=== PATIENT | female | born 1970 | race Two or more races ===

== ENCOUNTER 2016-08-06 17:04 | Emergency (ER) | payer MEDICAID ==
[~2016-08-06] VITALS: Ht 165.1 cm; Wt 117.9 kg
[2016-08-06 17:36] LABS: Basophils # (auto) 0 uL; Basophils % (auto) 0.3 % (0.0-2.0); DEFINITIVE VIEW TRANSMISSION; Eosinophils # (auto) 0.2 uL; Eosinophils % (auto) 1.8 % (0.0-7.0); Hematocrit 40.9 % (36.0-46.0); Hemoglobin 13.5 g/dL (12.2-16.2); Lymphocytes # (auto) 1.2 uL; Lymphocytes % (auto) 10.5 % (10.0-50.0); Mean Corpuscular Hemoglobin 26.2 pg (28.0-32.0); Mean Corpuscular Volume 79.4 fL (80.0-100.0); Mean Platelet Volume 8.8 fL (7.4-10.4); Monocytes # (auto) 0.4 uL; Monocytes % (auto) 3.6 % (0.0-12.0); Neutrophils # (auto) 9.3 uL; Neutrophils % (auto) 83.8 % (37.0-80.0); Platelet Count (auto) 334 10^3/uL (140-450); Red Cell Distribution Width 16.6 % (11.6-16.0); White Blood Cell 11.1 10^3/uL (4.4-10.8)
[2016-08-06 18:13] LABS: Albumin 3.3 g/dL (3.4-5.0); BUN/Creatinine Ratio 11.9; Bilirubin, Total 0.3 mg/dL (0.2-1.0); Calcium 8.6 mg/dL (8.5-10.1); Magnesium 2.1 mg/dL (1.6-2.6); Potassium 4.2 mmol/L (3.5-5.1); Total Protein 7.5 g/dL (6.4-8.2)
[2016-08-06 18:20] LABS: Urine Bilirubin Negative (Negative); Urine Blood Negative /uL (Negative); Urine Color Yellow (Yellow); Urine Glucose Normal (Normal); Urine Hyaline Cast FEW /lpf (0 - 2); Urine Ketone Negative (Negative); Urine Mucus FEW (None Seen); Urine RBC 2 /hpf (0 - 4); Urine Squamous Epithelial Cell FEW /hpf (<5); Urine Urobilinogen Normal (Negative)
[2016-08-06 18:29] LABS: Urine Nitrite POSITIVE (Negative)
[2016-08-07] MEDS ORDERED: SODIUM CHLORIDE 0.9% 1,000 ML IV ONE ×2 (00:55→01:00)
[2016-08-07] MEDS ORDERED: ONDANSETRON HCL 4 MG/2 ML VIAL IV ONE ×2 (01:00)
[2016-08-07] MEDS ORDERED: MORPHINE SULFATE 4 MG/ML SYRG IV ONE ×2 (01:00)
[2016-08-07 01:16] LABS: Amylase 46 U/L (25-115)
[2016-08-07 05:30] VITALS: BP 124/75
== END 2016-08-07 07:11 | disposition home or self-care (01) ==
LOC: ER 17:09
DX: K29.70 Gastritis, unspecified, without bleeding (principal)
CPT/HCPCS: 36415; 74176; 80053; 81001; 81025; 82150; 83690; 83735; 85025; 96361; 96374; 96375; 99285; J2270; J2405; J7030

== ENCOUNTER 2016-12-09 06:40 | Emergency (ER) | payer MEDICAID ==
[~2016-12-09] VITALS: Ht 165.1 cm; Wt 117.9 kg
[2016-12-09 07:29] VITALS: BP 136/72
[2016-12-09 07:32] LABS: Basophils # (auto) 0.1 uL; Basophils % (auto) 0.7 % (0.0-2.0); CONDITION Y; DEFINITIVE SEE PRINTOUT; Eosinophils # (auto) 0.3 uL; Eosinophils % (auto) 2.5 % (0.0-7.0); Hematocrit 37.7 % (36.0-46.0); Hemoglobin 12.3 g/dL (12.2-16.2); Lymphocytes # (auto) 2.2 uL; Lymphocytes % (auto) 19.3 % (10.0-50.0); Mean Corpuscular Hemoglobin 26.2 pg (28.0-32.0); Mean Corpuscular Hgb Conc. 32.7 g/dL (32.0-36.0); Mean Corpuscular Volume 80.1 fL (80.0-100.0); Mean Platelet Volume 9.2 fL (7.4-10.4); Monocytes # (auto) 0.4 uL; Monocytes % (auto) 3.6 % (0.0-12.0); Neutrophils # (auto) 8.4 uL; Neutrophils % (auto) 73.9 % (37.0-80.0); Platelet Count (auto) 310 10^3/uL (140-450); Red Cell Distribution Width 16.8 % (11.6-16.0); White Blood Cell 11.3 10^3/uL (4.4-10.8)
[2016-12-09 07:39] LABS: Urine Bilirubin Negative (Negative); Urine Blood Negative /uL (Negative); Urine Color Yellow (Yellow); Urine Glucose TRACE mg/dL (Normal); Urine Ketone TRACE (Negative); Urine Mucus FEW (None Seen); Urine Nitrite Negative (Negative); Urine RBC 3 /hpf (0 - 4); Urine Squamous Epithelial Cell FEW /hpf (<5); Urine Urobilinogen Normal (Negative); Urine pH 5.5 (5.0-8.0)
[2016-12-09] MEDS ORDERED: cefTRIAXone SOD 500 MG VL IM ONE (07:45)
[2016-12-09 07:47] LABS: BUN/Creatinine Ratio 21.6; Bilirubin, Total 0.2 mg/dL (0.2-1.0); Potassium 3.9 mmol/L (3.5-5.1); Total Protein 6.7 g/dL (6.4-8.2)
== END 2016-12-09 08:48 | disposition home or self-care (01) ==
LOC: ER 06:40
DX: N39.0 Urinary tract infection, site not specified (principal); Z20.2 Contact with and (suspected) exposure to infections with a predominantly sexual mode of transmission
CPT/HCPCS: 36415; 80053; 81001; 81025; 85025; 96372; 99284; J0696

== ENCOUNTER 2018-06-25 14:00 | Emergency (ER) | payer SELFPAY ==
[~2018-06-25] VITALS: Ht 165.1 cm; Wt 117.9 kg
[2018-06-25 14:26] VITALS: BP 135/78
[2018-06-25 14:51] LABS: Urine Bacteria FEW /hpf (None Seen); Urine Blood TRACE /uL (Negative); Urine Mucus FEW (None Seen); Urine Specific Gravity 1.024 (1.001-1.035); Urine WBC 240 /hpf (0 - 5)
[2018-06-25] MEDS ORDERED: KETOROLAC TROMETH 60MG/2ML VIAL IM ONE (16:30)
== END 2018-06-25 16:49 | disposition home or self-care (01) ==
LOC: ER 14:11
DX: S39.012A Strain of muscle, fascia and tendon of lower back, initial encounter (principal); R51 Headache; V43.52XA Car driver injured in collision with other type car in traffic accident, initial encounter; Y93.89 Activity, other specified; Y92.410 Unspecified street and highway as the place of occurrence of the external cause; Y99.8 Other external cause status
CPT/HCPCS: 70450; 72100; 81001; 96372; 99284; J1885

== ENCOUNTER → 2019-10-14 | Outpatient (CLI) | payer OTHER ==
[2019-10-14 08:39] LABS: Eosinophils # (auto) 0.3 10 ^3/uL (0-0.8); Mean Corpuscular Volume 73.6 fL (80.0-100.0); Monocytes # (auto) 0.4 10 ^3/uL (0-1.3); Nucleated Red Blood Cells % 0.1 %; Red Cell Distribution Width 18.4 % (11.8-14.3)
[2019-10-14 08:41] LABS: Basophils # (auto) 0.1 10 ^3/uL (0-0.2); Basophils % (auto) 0.7 % (0.0-2.0); Hemoglobin 12.5 g/dL (12.2-16.2); Lymphocytes # (auto) 2.2 10 ^3/uL (0.4-5.4); Mean Corpuscular Hemoglobin 23.5 pg (28.0-32.0); Mean Corpuscular Hgb Conc. 31.9 g/dL (32.0-36.0); Monocytes % (auto) 4.6 % (0.0-12.0); Neutrophils # (auto) 6.5 10 ^3/uL (1.6-8.6); Neutrophils % (auto) 68.7 % (37.0-80.0); Platelet Count (auto) 282 10^3/uL (140-450); White Blood Cell 9.4 10^3/uL (4.4-10.8)
[2019-10-14 08:46] LABS: Urine Bacteria FEW /hpf (None Seen); Urine Blood Negative /uL (Negative); Urine Hyaline Cast FEW /lpf (0 - 2); Urine Mucus FEW (None Seen); Urine Specific Gravity 1.021 (1.001-1.035); Urine WBC 129 /hpf (0 - 5); Urine WBC Clumps PRESENT /hpf (None Seen)
[2019-10-14 09:00] LABS: Albumin 3.2 g/dL (3.4-5.0); Calcium 8.7 mg/dL (8.5-10.1); Potassium 4.2 mmol/L (3.5-5.1)
[2019-10-14 09:09] LABS: BUN/Creatinine Ratio 26.1; Bilirubin, Total 0.3 mg/dL (0.2-1.0); Total Protein 7.3 g/dL (6.4-8.2)
== END | disposition home or self-care (01) ==
LOC: LAB 08:09
PROVIDERS: ATTEND Internal Medicine
DX: I10 Essential (primary) hypertension (principal); E78.5 Hyperlipidemia, unspecified; R73.09 Other abnormal glucose
CPT/HCPCS: 36415; 80053; 80061; 81001; 82306; 83036; 85025

== ENCOUNTER → 2020-02-14 | Outpatient (CLI) | payer OTHER ==
[2020-02-15 05:11] LABS: RPR Non Reactive (Non Reactive)
== END | disposition home or self-care (01) ==
LOC: LAB 17:23
PROVIDERS: ATTEND Physician Assistant
DX: Z11.3 Encounter for screening for infections with a predominantly sexual mode of transmission (principal)
CPT/HCPCS: 86592; 86695; 86696; 86703

== ENCOUNTER 2020-12-31 17:05 | Emergency (ER) | payer OTHER ==
[~2020-12-31] VITALS: Ht 165.1 cm; Wt 104.3 kg
[2020-12-31 18:32] VITALS: BP 125/72
[2020-12-31 19:36] LABS: Basophils # (auto) 0.1 10 ^3/uL (0-0.2); Eosinophils # (auto) 0.3 10 ^3/uL (0-0.8); Mean Corpuscular Volume 68.4 fL (80.0-100.0); Monocytes # (auto) 0.6 10 ^3/uL (0-1.3); Monocytes % (auto) 4.8 % (0.0-12.0)
[2020-12-31 19:37] LABS: Basophils % (auto) 0.6 % (0.0-2.0); Eosinophils % (auto) 2.7 % (0.0-7.0); Hematocrit 36.1 % (36.0-46.0); Hemoglobin 11.3 g/dL (12.2-16.2); Lymphocytes # (auto) 3.4 10 ^3/uL (0.4-5.4); Lymphocytes % (auto) 27.1 % (10.0-50.0); Mean Corpuscular Hemoglobin 21.5 pg (28.0-32.0); Mean Corpuscular Hgb Conc. 31.4 g/dL (32.0-36.0); Neutrophils # (auto) 8.1 10 ^3/uL (1.6-8.6); Neutrophils % (auto) 64.8 % (37.0-80.0); Red Blood Cells 5.28 10^6/uL (4.0-5.20); Red Cell Distribution Width 18.8 % (11.8-14.3); White Blood Cell 12.6 10^3/uL (4.4-10.8)
[2020-12-31 19:51] LABS: Albumin 3.4 g/dL (3.4-5.0); Calcium 8.6 mg/dL (8.5-10.1)
[2020-12-31 20:00] LABS: BUN/Creatinine Ratio 25.4; Bilirubin, Total 0.2 mg/dL (0.2-1.0); CRP High Sensitivity 2.16 mg/dL (< 0.3); Total Protein 7.5 g/dL (6.4-8.2)
[2020-12-31] MEDS ORDERED: methylPREDNISolone SOD SUCC 125 MG/2 ML VL IM ONE (21:30)
[2020-12-31] MEDS ORDERED: KETOROLAC TROMETH 60MG/2ML VIAL IM ONE (21:30)
== END 2020-12-31 21:40 | disposition home or self-care (01) ==
LOC: ER 17:05
DX: M51.26 Other intervertebral disc displacement, lumbar region (principal); G58.8 Other specified mononeuropathies; R20.0 Anesthesia of skin; M79.671 Pain in right foot; E66.9 Obesity, unspecified; R51.9 Headache, unspecified; I10 Essential (primary) hypertension; Z68.38 Body mass index [BMI] 38.0-38.9, adult; Z86.73 Personal history of transient ischemic attack (TIA), and cerebral infarction without residual deficits; Z90.49 Acquired absence of other specified parts of digestive tract
CPT/HCPCS: 36415; 70450; 72131; 80053; 85025; 85652; 86141; 93971; 96372; 99285; J1885; J2930

== ENCOUNTER 2022-06-10 16:36 | Emergency (ER) | payer OTHER ==
[~2022-06-10] VITALS: Ht 165.1 cm; Wt 111.0 kg
[2022-06-10] MEDS ORDERED: traMADol HCL 50 MG TAB PO ONE (17:30)
[2022-06-10] MEDS ORDERED: cloNIDine HCL 0.1 MG TAB PO ONE (17:30)
[2022-06-10 17:31] LABS: Basophils # (auto) 0.1 10 ^3/uL (0-0.2); Mean Corpuscular Volume 65.2 fL (80.0-100.0); Monocytes # (auto) 0.4 10 ^3/uL (0-1.3); White Blood Cell 10.7 10^3/uL (4.4-10.8)
[2022-06-10 17:33] LABS: Basophils % (auto) 1.2 % (0.0-2.0); Eosinophils # (auto) 0.3 10 ^3/uL (0-0.8); Eosinophils % (auto) 2.6 % (0.0-7.0); Hematocrit 33.6 % (36.0-46.0); Hemoglobin 10.5 g/dL (12.2-16.2); Lymphocytes # (auto) 2.4 10 ^3/uL (0.4-5.4); Lymphocytes % (auto) 22.5 % (10.0-50.0); Mean Corpuscular Hemoglobin 20.4 pg (28.0-32.0); Mean Corpuscular Hgb Conc. 31.3 g/dL (32.0-36.0); Monocytes % (auto) 3.8 % (0.0-12.0); Neutrophils # (auto) 7.5 10 ^3/uL (1.6-8.6); Neutrophils % (auto) 69.9 % (37.0-80.0); Red Blood Cells 5.15 10^6/uL (4.0-5.20); Red Cell Distribution Width 18.5 % (11.8-14.3)
[2022-06-10 17:36] LABS: Urine Bacteria FEW /hpf (None Seen); Urine Blood Negative /uL (Negative); Urine Hyaline Cast FEW /lpf (0 - 2); Urine Specific Gravity 1.017 (1.001-1.035); Urine WBC 1 /hpf (0 - 5)
[2022-06-10 18:03] LABS: Albumin 3.4 g/dL (3.4-5.0); BUN/Creatinine Ratio 20.8; Calcium 8.8 mg/dL (8.5-10.1)
[2022-06-10 18:06] LABS: Bilirubin, Total 0.2 mg/dL (0.2-1.0); Total Protein 7.1 g/dL (6.4-8.2)
[2022-06-10 18:51] VITALS: BP 138/76
[2022-06-10] MEDS ORDERED: MECL25TA18 PO (19:19)
== END 2022-06-10 20:28 | disposition home or self-care (01) ==
LOC: ER 16:36
DX: R51.9 Headache, unspecified (principal); R42 Dizziness and giddiness; I10 Essential (primary) hypertension; Z86.73 Personal history of transient ischemic attack (TIA), and cerebral infarction without residual deficits; Z90.49 Acquired absence of other specified parts of digestive tract
CPT/HCPCS: 36415; 70450; 72125; 80053; 81001; 81025; 82962; 85025; 93005

== ENCOUNTER 2023-03-15 09:04 | Emergency (ER) | payer OTHER ==
[~2023-03-15] VITALS: Ht 165.1 cm; Wt 113.5 kg
[~2023-03-15 09:04] MED LIST: MECL1TAB32 PO
[2023-03-15] MEDS ORDERED: ASPirin 81 mg TAB PO ONE (09:30)
[2023-03-15 09:38] LABS: Basophils # (auto) 0.1 10 ^3/uL (0-0.2); Eosinophils # (auto) 0.3 10 ^3/uL (0-0.8); Eosinophils % (auto) 2.4 % (0.0-7.0); Monocytes # (auto) 0.4 10 ^3/uL (0-1.3)
[2023-03-15 09:39] LABS: Basophils % (auto) 0.7 % (0.0-2.0); Hematocrit 35.4 % (36.0-46.0); Lymphocytes % (auto) 17.7 % (10.0-50.0); Mean Corpuscular Hemoglobin 20.2 pg (28.0-32.0); Mean Corpuscular Volume 65.4 fL (80.0-100.0); Monocytes % (auto) 3.9 % (0.0-12.0); Neutrophils # (auto) 8.6 10 ^3/uL (1.6-8.6); Neutrophils % (auto) 75.3 % (37.0-80.0); Red Blood Cells 5.42 10^6/uL (4.0-5.20); White Blood Cell 11.5 10^3/uL (4.4-10.8)
[2023-03-15 09:40] LABS: Red Cell Distribution Width 20.3 % (11.8-14.3)
[2023-03-15 09:58] LABS: Alanine Aminotransferase 15 U/L (7-40); Alkaline Phosphatase 92 U/L (46-116); Anion Gap 7 (5-15); Aspartate Aminotransferase 14 U/L (13-40); BUN/Creatinine Ratio 20.9 (10.0-20.0); Bilirubin, Total 0.4 mg/dL (0.2-1.0); Blood Urea Nitrogen 14 mg/dL (9-23); Calcium 8.8 mg/dL (8.5-10.1); Carbon Dioxide 23 mmol/L (20-30); Chloride 106 mmol/L (98-107); Glucose 111 mg/dL (74-106); Potassium 4.3 mmol/L (3.5-5.1); Sodium 136 mmol/L (136-145)
[2023-03-15 09:59] LABS: Total Protein 6.6 g/dL (5.7-8.2)
[2023-03-15 10:14] VITALS: PULSE 84; RESP 16; TEMP 98; O2SAT 99
[2023-03-15 10:19] LABS: Urine Bacteria NONE SEEN /hpf (None Seen); Urine Blood Negative /uL (Negative); Urine Clarity Clear (Clear); Urine Protein, UAD Negative (Negative); Urine Specific Gravity 1.016 (1.001-1.035); Urine Urobilinogen Normal (Negative); Urine WBC 1 /hpf (0 - 5); Urine pH 6.5 (5.0-8.0)
[2023-03-15 10:24] LABS: Urine Color Straw (Yellow)
[2023-03-15 13:54] LABS: COVID19 ANTIGEN SOFIA FIA POSITIVE (NEGATIVE)
[2023-03-15 14:00] VITALS: BP 135/76; PULSE 94; RESP 16; O2SAT 100
[2023-03-15] MEDS ORDERED: METH4PAK PO ×3 (14:01→14:16)
[2023-03-15] MEDS ORDERED: AZIT1POW PO ×3 (14:01→14:16)
[2023-03-15] MEDS ORDERED: AZITHROMYCIN 500MG/ 250ML 250 ML IV ONE (14:15)
[2023-03-15] MEDS ORDERED: methylPREDNISolone SOD SUCC 40 MG/ML VL IV ONE (14:15)
[2023-03-15 14:20] LABS: Anisocytosis Slight; Hypochromia Moderate; Platelet Estimate Adequate
== END 2023-03-15 16:08 | disposition home or self-care (01) ==
LOC: ER 09:04
DX: U07.1 COVID-19 (principal); I10 Essential (primary) hypertension; Z86.73 Personal history of transient ischemic attack (TIA), and cerebral infarction without residual deficits; Z90.49 Acquired absence of other specified parts of digestive tract; Z98.890 Other specified postprocedural states
CPT/HCPCS: 36415; 71046; 80053; 81001; 84484; 85025; 85379; 87426; 93005; 96365; 96375; 99285; J0456; J2920

== ENCOUNTER 2023-04-06 20:17 | Emergency (ER) | payer OTHER ==
[~2023-04-06] VITALS: Ht 165.1 cm; Wt 113.7 kg
[~2023-04-06 20:17] MED LIST changes: +AZIT1POW PO; +METH4PAK PO
[2023-04-06 22:19] LABS: COVID19 ANTIGEN SOFIA FIA NEGATIVE (NEGATIVE)
[2023-04-06 22:20] LABS: Rapid Influenza A Negative (Negative); Rapid Influenza B Negative (Negative)
[2023-04-06] MEDS ORDERED: IPRATROPIUM BROM 0.5 MG/2.5ML INH SOL NEB ONE (22:45)
[2023-04-06] MEDS ORDERED: ALBUTEROL SULF 2.5 MG/0.5ML(0.5%) NEB SOLN NEB ONE (22:45)
[2023-04-06] MEDS ORDERED: methylPREDNISolone SOD SUCC 125 MG/2 ML VL IM ONE (22:45)
[2023-04-06 23:12] LABS: Basophils # (auto) 0 10 ^3/uL (0-0.2); Basophils % (auto) 0.3 % (0.0-2.0); Eosinophils # (auto) 0.5 10 ^3/uL (0-0.8); Eosinophils % (auto) 4.6 % (0.0-7.0); Hematocrit 37.3 % (36.0-46.0); Hemoglobin 11.4 g/dL (12.2-16.2); Lymphocytes # (auto) 3.8 10 ^3/uL (0.4-5.4); Lymphocytes % (auto) 33.8 % (10.0-50.0); Mean Corpuscular Hemoglobin 20.5 pg (28.0-32.0); Mean Corpuscular Hgb Conc. 30.6 g/dL (32.0-36.0); Mean Corpuscular Volume 66.9 fL (80.0-100.0); Monocytes # (auto) 0.4 10 ^3/uL (0-1.3); Neutrophils # (auto) 6.4 10 ^3/uL (1.6-8.6); Neutrophils % (auto) 57.3 % (37.0-80.0); Red Blood Cells 5.57 10^6/uL (4.0-5.20); White Blood Cell 11.1 10^3/uL (4.4-10.8)
[2023-04-06 23:13] LABS: Red Cell Distribution Width 22.4 % (11.8-14.3)
[2023-04-06 23:46] LABS: Alanine Aminotransferase 17 U/L (7-40); Albumin 4.4 g/dL (3.2-4.8); Alkaline Phosphatase 104 U/L (46-116); Anion Gap 9 (5-15); Aspartate Aminotransferase 10 U/L (13-40); BUN/Creatinine Ratio 12.2 (10.0-20.0); Bilirubin, Total 0.4 mg/dL (0.2-1.0); Blood Urea Nitrogen 9 mg/dL (9-23); Calcium 9.3 mg/dL (8.7-10.4); Carbon Dioxide 26 mmol/L (20-30); Chloride 104 mmol/L (98-107); Glucose 102 mg/dL (74-106); Potassium 3.7 mmol/L (3.5-5.1); Sodium 139 mmol/L (136-145); Total Protein 7.4 g/dL (5.7-8.2)
[2023-04-06 23:53] LABS: Hypochromia Marked; Platelet Estimate Adequate; Stomatocytes Few
[2023-04-06 23:54] LABS: Ovalocytes FEW
[2023-04-07] MEDS ORDERED: ALBU108A5 IN (00:53)
[2023-04-07 02:22] VITALS: BP 131/96; PULSE 91; RESP 18; TEMP 98; O2SAT 97
== END 2023-04-07 02:36 | disposition home or self-care (01) ==
LOC: ER 20:17
DX: J40 Bronchitis, not specified as acute or chronic (principal); I10 Essential (primary) hypertension; Z86.73 Personal history of transient ischemic attack (TIA), and cerebral infarction without residual deficits; Z90.49 Acquired absence of other specified parts of digestive tract; Z20.822 Contact with and (suspected) exposure to COVID-19
CPT/HCPCS: 36415; 71045; 80053; 85025; 85379; 87426; 87804; 94640; 99284; J2930; J7644

== ENCOUNTER 2023-11-29 13:54 | Emergency (ER) | payer OTHER ==
[~2023-11-29] VITALS: Ht 165.1 cm; Wt 115.9 kg
[~2023-11-29 13:54] MED LIST changes: +ALBU108A5 IN; +MECL-90 PO; -MECL1TAB32 PO
[2023-11-29] MEDS: HYDROcodone-ACET 10/325MG TAB PO ONE (14:00)
[2023-11-29 14:20] LABS: Basophils # (auto) 0.1 10 ^3/uL (0-0.2); Basophils % (auto) 0.4 % (0.0-2.0); Eosinophils # (auto) 0 10 ^3/uL (0-0.8); Lymphocytes # (auto) 1.7 10 ^3/uL (0.4-5.4); Mean Corpuscular Volume 69.6 fL (80.0-100.0); Monocytes # (auto) 0.9 10 ^3/uL (0-1.3); Monocytes % (auto) 6.7 % (0.0-12.0)
[2023-11-29 14:22] LABS: Eosinophils % (auto) 0.3 % (0.0-7.0); Hematocrit 37.6 % (36.0-46.0); Lymphocytes % (auto) 12.4 % (10.0-50.0); Mean Corpuscular Hemoglobin 22.3 pg (28.0-32.0); Neutrophils # (auto) 10.7 10 ^3/uL (1.6-8.6); Neutrophils % (auto) 80.2 % (37.0-80.0); White Blood Cell 13.4 10^3/uL (4.4-10.8)
[2023-11-29 14:39] LABS: Alanine Aminotransferase 18 U/L (7-40); Albumin 4.1 g/dL (3.2-4.8); Alkaline Phosphatase 102 U/L (46-116); Anion Gap 8 (5-15); Aspartate Aminotransferase 14 U/L (13-40); BUN/Creatinine Ratio 14.1 (10.0-20.0); Blood Urea Nitrogen 12 mg/dL (9-23); Calcium 9.1 mg/dL (8.7-10.4); Carbon Dioxide 21 mmol/L (20-30); Chloride 108 mmol/L (98-107); Glucose 131 mg/dL (74-106); Lipase 28 U/L (12-53); Potassium 4.1 mmol/L (3.5-5.1); Sodium 137 mmol/L (136-145)
[2023-11-29 14:40] LABS: Bilirubin, Total 0.6 mg/dL (0.2-1.0); Total Protein 6.7 g/dL (5.7-8.2)
[2023-11-29 18:02] LABS: Urine Bacteria FEW /hpf (None Seen); Urine Blood 1+ /uL (Negative); Urine Budding Yeast OCCASIONAL /hpf (None Seen); Urine Clarity Ex.Turbid (Clear); Urine Color Colorless (Yellow); Urine Protein, UAD 1+ (Negative); Urine Specific Gravity 1.019 (1.001-1.035); Urine Urobilinogen Normal (Negative); Urine WBC 1099 /hpf (0 - 5); Urine WBC Clumps PRESENT /hpf (None Seen)
[2023-11-29] MEDS: ONDANSETRON ODT 4 MG TAB PO ONE (18:07)
[2023-11-29] MEDS: ACETAMINOPHEN 500 MG TAB PO ONE (18:07)
[2023-11-29] MEDS ORDERED: LEVO750T40 PO (19:15)
[2023-11-29] MEDS ORDERED: ACET500T58 PO (19:15)
[2023-11-29 20:06] VITALS: BP 116/72; PULSE 73; RESP 14; TEMP 97.9; O2SAT 95
[2023-11-29] MEDS: levoFLOXacin 250 MG TAB PO ONE (20:34)
== END 2023-11-29 20:40 | disposition home or self-care (01) ==
LOC: EDBD 13:54 → ER 13:54
DX: N39.0 Urinary tract infection, site not specified (principal); E03.9 Hypothyroidism, unspecified; I10 Essential (primary) hypertension; Z86.73 Personal history of transient ischemic attack (TIA), and cerebral infarction without residual deficits; Z98.890 Other specified postprocedural states; Z90.49 Acquired absence of other specified parts of digestive tract
CPT/HCPCS: 36415; 70450; 80053; 81001; 81025; 82962; 83690; 83880; 84484; 85025; 99284; Q0162

== ENCOUNTER 2024-11-30 09:34 | Inpatient (IN) | payer MEDICAID, OTHER ==
[~2024-11-30] VITALS: Ht 165.1 cm; Wt 111.0 kg
[~2024-11-30 09:34] MED LIST changes: +ACET500T58 PO; +LEVO750T40 PO
[2024-11-30] MEDS: FAMOTIDINE (10MG/ML) 2ML VL IV ONE (10:21)
[2024-11-30] MEDS: ONDANSETRON HCL 4 MG/2 ML VIAL IV ONE (10:21)
[2024-11-30] MEDS: SODIUM CHLORIDE 0.9% 1,000 ML IV ONE (10:21)
--- NOTE | 2024-11-30 10:30 | ED.PDOC ---
GI ASSESSMENT HPI Comments 54 y.o female presents to the ED for a chief complaint of left upper quadrant pain associated with nausea, vomiting and generalized weakness that started last night. Patient describes pain as sharp, constant and radiates to her back. Patient also reports developing a rash to bilateral hands that is now peeling and states she is unable to keep anything down including water. Patient denies any diarrhea, constipation, bloody stool, fever, chills. Patient has a medical history of laminectomy x September 2024, unilateral renal agenesis, thyroid disease, and TIA. Chief Complaint: Flank Pain Time Seen by MD: 10:12 Primary Care Provider: JUDITH Reviewed Notes: Nurses Notes, Medications, Allergies Allergies: Coded Allergies: NO KNOWN ALLERGIES (Unverified , 01/23/16) Home Meds Active Scripts Acetaminophen (Acetaminophen) 500 Mg Tab, 500 MG PO Q4HP PRN, #20 TAB Prov:MAISHA VEGA PAC 11/29/23 Levofloxacin Hemihydrate (LEVOFLOXACIN) 750 Mg Tab, 1 TAB PO DAILY, #10 TAB Prov:MAISHA VEGA PAC 11/29/23 Albuterol Sulfate (Albuterol Sulfate Hfa) 108 Mcg/Act Aer, 108 MCG IN TID PRN, #1 AER Prov:ARLINE KILPATRICK NURSING INSTRUCTOR 04/07/23 Methylprednisolone (Medrol Dosepak) 4 Mg Nolan, 4 MG PO UD, #21 TAB UAD Prov:SAUNDRA ROSALES MD 03/15/23 Azithromycin (Zithromax) 1 Gm Pow, 1 PACK PO ONCE, #1 PACK Prov:SAUNDRA ROSALES MD 03/15/23 Meclizine Hcl (Meclizine Hcl) 25 Mg Tab, 25 MG PO BIDP PRN for 10 Days, #20 MG Prov:DALLIN JAVIER MD 06/10/22 Information Source: Patient Mode of Arrival: walker Timing: Hours Duration: Since onset Quality: Sharp Vomitus: Hard Stool: Normal Severity: Moderate Recent: None Recent Hx of: None Pain Location: LUQ Modifying Factors: Nothing Associated sign and symptoms: Nausea, Vomiting, Abdominal Pain Past Medical History PAST MEDICAL HISTORY: Angina, HTN, Thyroid, TIA Past Medical History (Other): unilateral renal agenesis Surgical History: Cholecystectomy, Surgical History (Other): laminectomy x [place]irl 2025 ENGINEERING DRAFTER History: No Pertinent ENGINEERING DRAFTER History Family History Family History: Reviewed,noncontributory to illness Social History Smoker: Non-Smoker Alcohol: Denies ETOH Use Drugs: Denies Drug Use Lives In: Home Constitutional: reports: weakness; denies: chills, diaphoresis, fatigue, fever, malaise, sweats, others EENTM: denies: blurred vision, double vision, ear bleeding, ear discharge, ear drainage, ear pain, ear ringing, eye pain, eye redness, hearing loss, mouth pain, mouth swelling, nasal discharge, nose bleeding, nose congestion, nose pain, photophobia, tearing, throat pain, throat swelling, voice changes, others Respiratory: denies: cough, hemoptysis, orthopnea, SOB at rest, shortness of breath, SOB with excertion, stridor, wheezing, others Cardiovascular: denies: chest pain, dizzy spells, diaphoresis, Dyspnea on exertion, edema, irregular heart beat, left arm pain, lightheadedness, palpitations, PND, syncope, others Gastrointestinal: reports: abdominal pain, nausea, vomiting; denies: abdomen distended, blood streaked bowels, constipated, diarrhea, dysphagia, difficulty swallowing, hematemesis, melena, poor appetite, poor fluid intake, rectal bleeding, rectal pain, others Genitourinary: denies: abnormal vagina bleeding, burning, dyspareunia, dysuria, flank pain, frequency, hematuria, incontinence, pain, , vagina discharge, urgency, others Neurological: denies: dizziness, fainting, headache, left sided numbness, left sided weakness, numbness, paresthesia, pre-existing deficit, right sided numbness, right sided weakness, seizure, speech problems, tingling, tremors, weakness, others Musculoskeletal: denies: back pain, gout, joint pain, joint swelling, muscle pain, muscle stiffness, neck pain, others Integumetry: denies: bruises, change in color, change in hair/nails, dryness, laceration, lesions, lumps, rash, wounds, others Allergic/Immunocompromised: denies: Difficulty Healing, Frequent Infections, Hives, Itching, others Hematologic/Lymphatic: denies: anemia, blood clots, easy bleeding, easy bruising, swollen glands, others Endocrine: denies: excessive hunger, excessive sweating, excessive thirst, excessive urination, flushing, intolerance to cold, intolerance to heat, unexplained weight gain, unexplained weight loss, others Psychiatric: denies: anxiety, bipolar disorder, depression, hopeless, panic disorder, schizophrenia, sleepless, suicidal, others All Other Systems: Reviewed and Negative Physical Exam General Appearance: No Apparent Distress, Normal HEENT: Normal ENT Inspection, Pharynx Normal, TMs Normal Neck: Full Range of Motion, Non-Tender, Normal, Normal Inspection Respiratory: Chest Non-Tender, Lungs Clear, No Accessory Muscle Use, No Respiratory Distress, Normal Breath Sounds Cardiovascular: No Edema, No JVD, No Murmur, No Gallop, Normal Peripheral Pulses, Regular Rate/Rhythm Breast Exam: Deferred Gastrointestinal: No Organomegaly, Non Tender, No Pulsatile Mass, Normal Bowel Sounds, Soft Genitalia: Deferred Pelvic: Deferred Rectal: Deferred Extremities: No calf tenderness, Normal capillary refill, Normal inspection, Normal range of motion, Non-tender, No pedal edema Musculoskeletal : Apperance: Normal Neurologic: Alert, programming coordinator II-XII nml as Tested, No Motor Deficits, Normal Affect, Normal Mood, No Sensory Deficits Cerebellar Function: Normal Reflexes: Normal Skin: Dry, Normal Color, Warm Lymphatic: No Adenopathy Was a procedure done? Was a procedure done?: No GI differential Dx Differential Diagnosis: Esophagitis, Gastritis/PUD, Inflammatory BD X-Ray, Labs, Meds, VS Vital Signs Date Time Temp Pulse Resp B/P (MAP) Pulse Ox O2 Delivery O2 Flow Rate FiO2 11/30/24 11:37 98.0 65 16 140/71 (94) 100 98.0 11/30/24 09:45 98.0 92 16 134/76 (95) 99 98.0 11/30/24 09:45 98.0 92 16 134/76 (95) 99 98.0 Lab Test 11/30/24 10:27 11/30/24 09:51 Range/Units White Blood Count 11.1 H 4.4-10.8 10^3/uL Red Blood Count 5.43 H 4.0-5.20 10^6/uL Hemoglobin 14.4 12.2-16.2 g/dL Hematocrit 43.7 36.0-46.0 % Mean Corpuscular Volume 80.4 80.0-100.0 fL Mean Corpuscular Hemoglobin 26.5 L 28.0-32.0 pg Mean Corpuscular Hemoglobin Concent 32.9 32.0-36.0 g/dL Red Cell Distribution Width 15.4 H 11.8-14.3 % Platelet Count 291 140-450 10^3/uL Mean Platelet Volume 9.2 6.9-10.8 fL Neutrophils (%) (Auto) 70.6 37.0-80.0 % Lymphocytes (%) (Auto) 22.4 10.0-50.0 % Monocytes (%) (Auto) 3.7 0.0-12.0 % Eosinophils (%) (Auto) 1.9 0.0-7.0 % Basophils (%) (Auto) 1.4 0.0-2.0 % Neutrophils # (Auto) 7.8 1.6-8.6 10 ^3/uL Lymphocytes # (Auto) 2.5 0.4-5.4 10 ^3/uL Monocytes # (Auto) 0.4 0-1.3 10 ^3/uL Eosinophils # (Auto) 0.2 0-0.8 10 ^3/uL Basophils # (Auto) 0.2 0-0.2 10 ^3/uL Nucleated Red Blood Cells 0.0 % Sodium Level 141 136-145 mmol/L Potassium Level 3.8 3.5-5.1 mmol/L Chloride Level 105 98-107 mmol/L Carbon Dioxide Level 24 20-31 mmol/L Anion Gap 12 5-15 Blood Urea Nitrogen 13 9-23 mg/dL Creatinine 0.75 0.550-1.02 mg/dL Glomerular Filtration Rate Calc 95 >90 mL/min BUN/Creatinine Ratio 17.3 10.0-20.0 Serum Glucose 80 74-106 mg/dL Calcium Level 10.3 8.7-10.4 mg/dL Urine Color Yellow Yellow Urine Clarity Turbid H Clear Urine pH 7.5 5.0-9.0 Urine Specific [place] 1.022 1.001-1.035 Urine Protein Trace H Negative Urine Ketones Negative Negative Urine Blood Negative Negative /uL Urine Nitrite 2+ H Negative Urine Bilirubin Negative Negative Urine Urobilinogen Normal Negative mg/dL Urine Leukocyte Esterase 2+ Negative /uL Urine RBC 5 0 - 4 /hpf Urine Microscopic WBC 17 H 0-5 /HPF Urine Squamous Epithelial Cells Many <5 /hpf Urine Bacteria Many H None Seen /hpf Urine Mucus Few None Seen Urine Glucose Normal Normal mg/dL Current Medications Medications (Trade) Dose Ordered Sig/Kami Route Start Time Stop Time Status Last Admin Sodium Chloride 1,000 ml @ 1,000 mls/hr Q1H ONCE IV 11/30/24 10:15 11/30/24 11:14 DC 11/30/24 10:21 Ondansetron HCl (Zofran) 4 mg ONCE ONCE IV 11/30/24 10:15 11/30/24 10:16 DC 11/30/24 10:21 Famotidine (Pepcid Injection) 20 mg ONCE ONCE IV 11/30/24 10:15 11/30/24 10:16 DC 11/30/24 10:21 Time of 1ST Reevaluation: 12:00 Reevaluation 1ST: Unchanged Patient Education/Counseling: Diagnosis, Treatment, Prognosis Family Education/Counseling: No Family Present SEPSIS Sepsis Screen Date sepsis recognized/suspect: Nov 30, 2024 Time Sepsis recognized/suspect: 944 Recent Procedure: Yes (LAMINECTOMY 10/07/24) On Antibiotic Therapy: No Respiratory Rate >20: No Heart Rate >90: Yes Temp<36 C (96.8 F) or >38.3 C: No SBP <90 or MAP <65 mmHG: No New Acute Mental Status Change: No Is the patient on CPAP, BIPAP,: No Orders/Vitals/Labs Physician Orders Cefepime 2gm/50ml Ns (Maxipime 2gm/50ml) (11/30/24 13:00) Vancomycin 1gm/200ml Pm (11/30/24 13:00) Lactic Acid W/ Reflex Order (11/30/24 12:49) Blood Culture (11/30/24 12:49) Vital Signs Date Time Temp Pulse Resp B/P (MAP) Pulse Ox O2 Delivery O2 Flow Rate FiO2 11/30/24 11:37 98.0 65 16 140/71 (94) 100 98.0 11/30/24 09:45 98.0 92 16 134/76 (95) 99 98.0 11/30/24 09:45 98.0 92 16 134/76 (95) 99 98.0 Laboratory Tests Test 11/30/24 10:27 White Blood Count 11.1 10^3/uL (4.4-10.8) H Medications Medications Dose Ordered Sig/Kami Route Start Time Stop Time Status Last Admin Dose Admin Famotidine 20 mg ONCE ONCE IV 11/30/24 10:15 11/30/24 10:16 DC 11/30/24 10:21 Ondansetron HCl 4 mg ONCE ONCE IV 11/30/24 10:15 11/30/24 10:16 DC 11/30/24 10:21 Sodium Chloride 1,000 ml @ 1,000 mls/hr Q1H ONCE IV 11/30/24 10:15 11/30/24 11:14 DC 11/30/24 10:21 Departure 1 Departure Time of Disposition: 13:22 (Patient with a complicated UTI this failed many outpatient antibiotics. We will admit patient for further workup and expert consultation) Impression: Primary Impression: Complicated UTI (urinary tract infection) Disposition: ADMITTED INPATIENT Admit to: Med Surg Condition: Serious Critical Care Note Critical Care Time?: No Stability Stability form required: No I personally scribed for ALEJANDRO AIKEN MD ([email or web address]) on 11/30/24 at 10:30. Electronically submitted by Ellen Morales ([facility]). ALEJANDRO AIKEN MD Nov 30, 2024 10:30
[2024-11-30 10:44] LABS: Urine Bacteria MANY /hpf (None Seen); Urine Blood Negative /uL (Negative); Urine Clarity Turbid (Clear); Urine Color Yellow (Yellow); Urine Mucus FEW (None Seen); Urine Protein, UAD TRACE (Negative); Urine Specific Gravity 1.022 (1.001-1.035); Urine Squamous Epithelial Cell MANY /hpf (<5); Urine Urobilinogen Normal (Negative); Urine WBC 17 /HPF (0-5); Urine pH 7.5 (5.0-9.0)
[2024-11-30 10:56] LABS: Basophils # (auto) 0.2 10 ^3/uL (0-0.2); Basophils % (auto) 1.4 % (0.0-2.0); Eosinophils # (auto) 0.2 10 ^3/uL (0-0.8); Eosinophils % (auto) 1.9 % (0.0-7.0); Hematocrit 43.7 % (36.0-46.0); Hemoglobin 14.4 g/dL (12.2-16.2); Lymphocytes # (auto) 2.5 10 ^3/uL (0.4-5.4); Lymphocytes % (auto) 22.4 % (10.0-50.0); Mean Corpuscular Hemoglobin 26.5 pg (28.0-32.0); Mean Corpuscular Hgb Conc. 32.9 g/dL (32.0-36.0); Mean Corpuscular Volume 80.4 fL (80.0-100.0); Monocytes # (auto) 0.4 10 ^3/uL (0-1.3); Monocytes % (auto) 3.7 % (0.0-12.0); Neutrophils # (auto) 7.8 10 ^3/uL (1.6-8.6); Neutrophils % (auto) 70.6 % (37.0-80.0); Platelet Count (auto) 291 10^3/uL (140-450); Red Blood Cells 5.43 10^6/uL (4.0-5.20); Red Cell Distribution Width 15.4 % (11.8-14.3); White Blood Cell 11.1 10^3/uL (4.4-10.8)
[2024-11-30 11:02] LABS: Chloride 105 mmol/L (98-107); Potassium 3.8 mmol/L (3.5-5.1); Sodium 141 mmol/L (136-145)
[2024-11-30 11:03] LABS: Anion Gap 12 (5-15); Calcium 10.3 mg/dL (8.7-10.4); Carbon Dioxide 24 mmol/L (20-31)
[2024-11-30 11:08] LABS: BUN/Creatinine Ratio 17.3 (10.0-20.0); Blood Urea Nitrogen 13 mg/dL (9-23); Glucose 80 mg/dL (74-106)
[2024-11-30] MEDS: VANCOMYCIN 1GM/200ML PM 200 ML IV ONE (13:53)
[2024-11-30] MEDS: CEFEPIME 2GM/50ML NS 50 ML IV ONE (14:02)
[2024-11-30] MEDS ORDERED: ACETAMINOPHEN 325 MG TAB PO PRN (15:30)
[2024-11-30] MEDS ORDERED: DOCUSATE SOD 100 MG CAP PO PRN (15:30)
--- NOTE | 2024-11-30 15:32 | DVHHP2 ---
Admitting Diagnosis: flank pain History of Present Illness 54 y.o female presents to the ED for a chief complaint of left upper quadrant pain associated with nausea, vomiting and generalized weakness that started last night. Patient describes pain as sharp, constant and radiates to her back. Patient also reports developing a rash to bilateral hands that is now peeling and states she is unable to keep anything down including water. Patient denies any diarrhea, constipation, bloody stool, fever, chills. Patient has a medical history of laminectomy x September 2024, unilateral renal agenesis, thyroid disease, and TIA. PAST MEDICAL HISTORY: Angina, HTN, Thyroid, TIA Past Medical History (Other): unilateral renal agenesis Surgical History: Cholecystectomy, Surgical History (Other): laminectomy x 2024 CHIEF LENDING OFFICER History: No Pertinent CHIEF LENDING OFFICER History Family History: Reviewed,noncontributory to illness Social History Smoker: Non-Smoker Alcohol: Denies ETOH Use Drugs: Denies Drug Use Lives In: Home Patient Family History: Cerebrovascular accident (CVA) G8 MOTHER G8 FATHER GRANDPARENTS GRANDPARENTS Diabetes mellitus G8 MOTHER G8 FATHER GRANDPARENTS GRANDPARENTS FHx: uterine cancer Glaucoma G8 FATHER G8 SISTER Hypertension G8 MOTHER G8 FATHER GRANDPARENTS GRANDPARENTS Malignant neoplasm of breast AUNT Malignant neoplasm of ovary AUNT Allergies: Coded Allergies: NO KNOWN ALLERGIES (Unverified , 01/23/16) Home Meds Active Scripts Acetaminophen (Acetaminophen) 500 Mg Tab, 500 MG PO Q4HP PRN, #20 TAB Prov:MAISHA VEGA PAC 11/29/23 Levofloxacin Hemihydrate (LEVOFLOXACIN) 750 Mg Tab, 1 TAB PO DAILY, #10 TAB Prov:MAISHA VEGA PAC 11/29/23 Albuterol Sulfate (Albuterol Sulfate Hfa) 108 Mcg/Act Aer, 108 MCG IN TID PRN, #1 AER Prov:ARLINE KILPATRICK 04/07/23 Methylprednisolone (Medrol Dosepak) 4 Mg Nolan, 4 MG PO UD, #21 TAB UAD Prov:SAUNDRA ROSALES MD 03/15/23 Azithromycin (Zithromax) 1 Gm Pow, 1 PACK PO ONCE, #1 PACK Prov:SAUNDRA ROSALES MD 03/15/23 Meclizine Hcl (Meclizine Hcl) 25 Mg Tab, 25 MG PO BIDP PRN for 10 Days, #20 MG Prov:DALLIN JAVIER MD 06/10/22 Current Medications Current Medications Medications (Trade) Dose Ordered Sig/Kami Route PRN Reason Start Time Stop Time Status Last Admin Cefepime HCl 50 ml @ 12.5 mls/hr BID IV 11/30/24 22:00 Sodium Chloride (Saline Lock Ns) 10 ml Q8HR IV 11/30/24 22:00 UNV Docusate Sodium (Colace Capsule) 100 mg BIDPRN PRN PO FOR CONSTIPATION 11/30/24 15:30 UNV Acetaminophen (Tylenol Tablet) 650 mg Q6HP PRN PO PAIN SCALE 1-3 OR TEMP>100.4 11/30/24 15:30 UNV Acetaminophen/ Hydrocodone Bitart ([place] 5/325MG Tab) 1 tab Q4HP PRN PO MODERATE PAIN (4-6 PAIN SCALE) 11/30/24 15:30 UNV Ondansetron HCl (Zofran) 4 mg Q4HP PRN IV NAUSEA / VOMITING 11/30/24 15:30 UNV Morphine Sulfate 2 mg Q4HPRN PRN IV SEVERE PAIN (7-10 PAIN SCALE) 11/30/24 15:30 UNV Enoxaparin Sodium (Lovenox) 40 mg DAILY SC 12/01/24 10:00 UNV Vital Signs Vital Signs Date Time Temp Pulse Resp B/P (MAP) Pulse Ox O2 Delivery O2 Flow Rate FiO2 11/30/24 14:35 97.6 64 16 135/92 (106) 100 97.6 11/30/24 13:45 Room Air* 0 21 Physical Exam Gen: 54 y.o. woman, sitting on chair. Mod distress HEENT: AT/NC Heart: RRR Lung: CTA b/l Abd: soft, non-tender, non-distended Msk: no edema or cyanosis. left flank pain without palpation Neuro: AOx3, no focal deficits Results Labs Test 11/30/24 13:06 11/30/24 10:27 11/30/24 09:51 Range/Units Lactic Acid Level 1.2 0.4-2.0 mmol/L White Blood Count 11.1 H 4.4-10.8 10^3/uL Red Blood Count 5.43 H 4.0-5.20 10^6/uL Hemoglobin 14.4 12.2-16.2 g/dL Hematocrit 43.7 36.0-46.0 % Mean Corpuscular Volume 80.4 80.0-100.0 fL Mean Corpuscular Hemoglobin 26.5 L 28.0-32.0 pg Mean Corpuscular Hemoglobin Concent 32.9 32.0-36.0 g/dL Red Cell Distribution Width 15.4 H 11.8-14.3 % Platelet Count 291 140-450 10^3/uL Mean Platelet Volume 9.2 6.9-10.8 fL Neutrophils (%) (Auto) 70.6 37.0-80.0 % Lymphocytes (%) (Auto) 22.4 10.0-50.0 % Monocytes (%) (Auto) 3.7 0.0-12.0 % Eosinophils (%) (Auto) 1.9 0.0-7.0 % Basophils (%) (Auto) 1.4 0.0-2.0 % Neutrophils # (Auto) 7.8 1.6-8.6 10 ^3/uL Lymphocytes # (Auto) 2.5 0.4-5.4 10 ^3/uL Monocytes # (Auto) 0.4 0-1.3 10 ^3/uL Eosinophils # (Auto) 0.2 0-0.8 10 ^3/uL Basophils # (Auto) 0.2 0-0.2 10 ^3/uL Nucleated Red Blood Cells 0.0 % Sodium Level 141 136-145 mmol/L Potassium Level 3.8 3.5-5.1 mmol/L Chloride Level 105 98-107 mmol/L Carbon Dioxide Level 24 20-31 mmol/L Anion Gap 12 5-15 Blood Urea Nitrogen 13 9-23 mg/dL Creatinine 0.75 0.550-1.02 mg/dL Glomerular Filtration Rate Calc 95 >90 mL/min BUN/Creatinine Ratio 17.3 10.0-20.0 Serum Glucose 80 74-106 mg/dL Calcium Level 10.3 8.7-10.4 mg/dL Urine Color Yellow Yellow Urine Clarity Turbid H Clear Urine pH 7.5 5.0-9.0 Urine Specific [place] 1.022 1.001-1.035 Urine Protein Trace H Negative Urine Ketones Negative Negative Urine Blood Negative Negative /uL Urine Nitrite 2+ H Negative Urine Bilirubin Negative Negative Urine Urobilinogen Normal Negative mg/dL Urine Leukocyte Esterase 2+ Negative /uL Urine RBC 5 0 - 4 /hpf Urine Microscopic WBC 17 H 0-5 /HPF Urine Squamous Epithelial Cells Many <5 /hpf Urine Bacteria Many H None Seen /hpf Urine Mucus Few None Seen Urine Glucose Normal Normal mg/dL Primary Diagnosis Acute pyelonephritis possible renal stone Plan Patient has history of when kidney disease Check urine culture, blood culture Start vancomycin and cefepime for broad-spectrum spectrum antibiotics IV fluids for hydration Antiemetics IV pain control Resume home meds Regular diet Full code Lovenox for DVT prophylaxis Prophylaxis needed Plan discussed with: Patient Date of Service: Nov 30, 2024 Billing Provider: JEMAL LUTZ MD Common Visit Codes: [id number] INP/OBS CARE (HIGH) JEMAL LUTZ MD Nov 30, 2024 15:32
[2024-11-30] MEDS: LACTATED RINGER'S 1,000 ML IV ONE (15:43)
[2024-11-30] MEDS: ONDANSETRON HCL 4 MG/2 ML VIAL IV PRN (15:43)
[2024-11-30] MEDS ORDERED: ALBUTEROL SULF HFA 90MCG INH 200DOSE IN PRN (15:45)
[2024-11-30] MEDS ORDERED: MECLIZINE HCL 25 MG TAB PO PRN (15:45)
--- NOTE | 2024-11-30 16:05 | DVH ---
EXAM: CT Abdomen and Pelvis Without Intravenous Contrast CLINICAL INDICATION: assess for renal stone TECHNIQUE: Axial computed tomography images of the abdomen and pelvis without intravenous contrast. This CT exam was performed using one or more of the following dose reduction techniques: automated exposure control, adjustment of the mA and/or kV according to patient size, and/or use of iterative r econstruction technique. CONTRAST: COMPARISON: None FINDINGS: LUNG BASES: Unremarkable. No mass. No consolidation. MEDIASTINUM: Small esophageal hiatal hernia. ABDOMEN: LIVER: Hepatomegaly with fatty infiltration. GALLBLADDER AND BILE DUCTS: Gallbladder is surgically absent. No ductal dilation. PANCREAS: Unremarkable. No ductal dilation. SPLEEN: Unremarkable. No splenomegaly. ADRENALS: Unremarkable. No mass. KIDNEYS AND URETERS: Right nephrectomy. No stones within either kidney. No hydronephrosis. STOMACH AND BOWEL: Fecal retention in the colon consistent with constipation. No obstruction. No mucosal thickening. PELVIS: APPENDIX: No findings to suggest acute appendicitis. BLADDER: Unremarkable. No stones. REPRODUCTIVE: Unremarkable as visualized. ABDOMEN and PELVIS: INTRAPERITONEAL SPACE: Unremarkable. No free air. No significant fluid collection. BONES/JOINTS: No acute fracture. No dislocation. SOFT TISSUES: Unremarkable. VASCULATURE: Unremarkable. No abdominal aortic aneurysm. LYMPH NODES: Unremarkable. No enlarged lymph nodes. OTHER FINDINGS: . . IMPRESSION: 1. Small esophageal hiatal hernia. 2. Hepatomegaly with fatty infiltration. 3. Fecal retention in the colon consistent with constipation. 4. No obstructive uropathy.
[2024-11-30] MEDS ORDERED: VANCOMYCIN PER PHARMACY 0 MG IV SCH (16:45)
[2024-11-30 18:19] VITALS: BP 145/84; PULSE 97; RESP 18; TEMP 97.7; O2SAT 97
[2024-11-30 19:59] VITALS: BP 138/76; PULSE 69; RESP 18; TEMP 97.4; O2SAT 100
[2024-11-30] MEDS ORDERED: LEVO50TA7 PO (20:08)
[2024-11-30] MEDS ORDERED: DULO60CA41 PO (20:09)
[2024-11-30] MEDS ORDERED: SENN-58 PO (20:10)
[2024-11-30 21:00] VITALS: BP 138/76; PULSE 69; RESP 18; TEMP 97.4; O2SAT 100
[2024-11-30] MEDS: HYDROcodone-ACET 5/325MG TAB PO PRN (21:14)
[2024-11-30] MEDS: CEFEPIME 2GM/50ML NS 50 ML IV SCH (22:01)
[2024-11-30] MEDS: SODIUM CHLOR 0.9% PF (SALINE LOCK) 10ML VIAL/SYR IV SCH (22:01)
[2024-12-01] VITALS (8 sets, daily range): BP systolic 123–148; BP diastolic 74–88; PULSE 64–86; RESP 17–18; TEMP 97.2–98.2; O2SAT 97–100
[2024-12-01 04:37] LABS: Eosinophils # (auto) 0.2 10 ^3/uL (0-0.8); Lymphocytes # (auto) 2.1 10 ^3/uL (0.4-5.4); Mean Corpuscular Hemoglobin 26.6 pg (28.0-32.0); Monocytes # (auto) 0.5 10 ^3/uL (0-1.3)
[2024-12-01 04:39] LABS: Basophils # (auto) 0.1 10 ^3/uL (0-0.2); Basophils % (auto) 0.6 % (0.0-2.0); Eosinophils % (auto) 2.2 % (0.0-7.0); Hematocrit 39.5 % (36.0-46.0); Hemoglobin 13.2 g/dL (12.2-16.2); Lymphocytes % (auto) 21.4 % (10.0-50.0); Mean Corpuscular Hgb Conc. 33.3 g/dL (32.0-36.0); Mean Corpuscular Volume 79.8 fL (80.0-100.0); Neutrophils % (auto) 70.8 % (37.0-80.0); Platelet Count (auto) 294 10^3/uL (140-450); Red Blood Cells 4.96 10^6/uL (4.0-5.20); Red Cell Distribution Width 15.3 % (11.8-14.3); White Blood Cell 9.9 10^3/uL (4.4-10.8)
[2024-12-01 04:51] LABS: Alanine Aminotransferase 19 U/L (7-40); Alkaline Phosphatase 113 U/L (46-116); Anion Gap 12 (5-15); Aspartate Aminotransferase 24 U/L (<34); BUN/Creatinine Ratio 17.1 (10.0-20.0); Blood Urea Nitrogen 13 mg/dL (9-23); Carbon Dioxide 24 mmol/L (20-31); Chloride 104 mmol/L (98-107); Glucose 92 mg/dL (74-106); Potassium 3.8 mmol/L (3.5-5.1); Sodium 140 mmol/L (136-145)
[2024-12-01 04:53] LABS: Albumin 4.2 g/dL (3.2-4.8); Bilirubin, Total 0.4 mg/dL (0.2-1.0)
[2024-12-01] MEDS: ENOXAPARIN SOD 40 MG/0.4 ML SYRINGE SC SCH (09:12)
[2024-12-01] MEDS: VANCOMYCIN 1.5GM/300ML 300 ML IV SCH (14:27)
--- NOTE | 2024-12-01 17:12 | DVHPN2 ---
Subjective I am assuming the care of the patient from today onwards who was under the care of the hospitalist team that he would sign out obtained. Patient was seen and examined by me at bedside. Chief complaining of left flank pain. Changes from previous H/P or p: No Changes Objective Vitals Vital Signs Date Time Temp Pulse Resp B/P (MAP) Pulse Ox O2 Delivery O2 Flow Rate FiO2 12/01/24 12:56 97.3 75 17 129/75 (93) 98 97.3 11/30/24 19:59 Room Air* 0 21 Intake/Output Intake and Output 12/01/24 07:00 Intake Total 1525.0 ml Balance 1525.0 ml Intake Oral 500 ml IV Total 1025.0 ml # Voids 3 Exam HEENT pupils are reactive Neck is supple CVS S1-S2 regular rate and rhythm Respiratory by L clear GI possible some soft nondistended r, there is left CVA tenderness Extremities no pedal edema CUFF RUNNER no motor deficit Medications Current Medications Medications Dose Ordered Sig/Kami Route Start Time Stop Time Status Last Admin Dose Admin Cefepime HCl 50 ml @ 12.5 mls/hr BID IV 11/30/24 22:00 12/01/24 09:23 12.5 MLS/HR Sodium Chloride 10 ml Q8HR IV 11/30/24 22:00 12/01/24 14:27 10 ML Docusate Sodium 100 mg BIDPRN PRN PO 11/30/24 15:30 Acetaminophen 650 mg Q6HP PRN PO 11/30/24 15:30 Acetaminophen/ Hydrocodone Bitart 1 tab Q4HP PRN PO 11/30/24 15:30 12/01/24 01:30 1 TAB Ondansetron HCl 4 mg Q4HP PRN IV 11/30/24 15:30 12/01/24 12:03 4 MG Morphine Sulfate 2 mg Q4HPRN PRN IV 11/30/24 15:30 Enoxaparin Sodium 40 mg DAILY SC 12/01/24 10:00 12/01/24 09:12 40 MG Albuterol 108 mcg TID PRN IN 11/30/24 15:45 Cancel Meclizine HCl 25 mg BIDP PRN PO 11/30/24 15:45 Vancomycin HCl 0 ml @ 0 mls/hr UD IV 11/30/24 16:45 Vancomycin HCl 300 ml @ 200 mls/hr Q12H IV 12/01/24 14:00 12/01/24 14:27 200 MLS/HR Laboratory Results Laboratory Tests 12/01/24 03:18 Chemistry Test 12/01/24 03:18 Albumin 4.2 g/dL (3.2-4.8) Calcium Level 9.0 mg/dL (8.7-10.4) Total Protein 7.0 g/dL (5.7-8.2) LFT Test 12/01/24 03:18 Alanine Aminotransferase (ALT) 19 U/L (7-40) Alkaline Phosphatase 113 U/L (46-116) Aspartate Amino Transferase (AST) 24 U/L (<34) Total Bilirubin 0.4 mg/dL (0.2-1.0) Urinalysis Test 11/30/24 09:51 Urine Color Yellow (Yellow) Urine Clarity Turbid (Clear) H Urine pH 7.5 (5.0-9.0) Urine Specific [place] 1.022 (1.001-1.035) Urine Protein Trace (Negative) H Urine Ketones Negative (Negative) Urine Blood Negative /uL (Negative) Urine Nitrite 2+ (Negative) H Urine Bilirubin Negative (Negative) Urine Urobilinogen Normal mg/dL (Negative) Urine Leukocyte Esterase 2+ /uL (Negative) Urine RBC 5 /hpf (0 - 4) Urine Microscopic WBC 17 /HPF (0-5) H Urine Squamous Epithelial Cells Many /hpf (<5) Urine Bacteria Many /hpf (None Seen) H Urine Mucus Few (None Seen) Urine Glucose Normal mg/dL (Normal) Microbiology Microbiology Date/Time Source Procedure Growth Status 11/30/24 13:06 Blood Blood Culture - Preliminary NO GROWTH AFTER 24 HOURS OF INCUBATION. Resulted 11/30/24 09:51 Voided Urine Urine Culture - Preliminary Resulted Assessment/Plan Assessment/Plan 53-year-old female with a known history of lumbar spine surgery in the past presented to the hospital left flank pain found to have 1. Acute pyelonephritis 2. Acute cystitis with microscopic hematuria 3. Solitary kidney 4. Leukocytosis -IV antibiotics, follow up urine culture, discontinue vancomycin IV. -pain meds as needed. Plan discussed with: Patient My Orders Orders - AYDEN BRUCE MD Procedure Category Date Status Time Communication Order ORDERS 12/01/24 Transmitted 17:02 Date of Service: Dec 01, 2024 Billing Provider: AYDEN BRUCE MD Common Visit Codes: [id number] INP/OBS CARE(MOD) AYDEN BRUCE MD Dec 01, 2024 17:12
[2024-12-01] MEDS: MORPHINE SULFATE INJ 2 MG/ml SYRG IV PRN (19:17)
[2024-12-02] VITALS (7 sets, daily range): BP systolic 108–144; BP diastolic 65–82; PULSE 82–105; RESP 18–20; TEMP 97.8–100; O2SAT 95–100
[2024-12-02 06:01] LABS: Basophils # (auto) 0 10 ^3/uL (0-0.2); Basophils % (auto) 0.6 % (0.0-2.0); Eosinophils # (auto) 0.3 10 ^3/uL (0-0.8); Mean Corpuscular Hgb Conc. 33.2 g/dL (32.0-36.0); Monocytes # (auto) 0.5 10 ^3/uL (0-1.3); Neutrophils # (auto) 5.4 10 ^3/uL (1.6-8.6); Nucleated Red Blood Cells % 0.1 %
[2024-12-02 06:05] LABS: Hematocrit 38.2 % (36.0-46.0); Hemoglobin 12.7 g/dL (12.2-16.2); Lymphocytes # (auto) 1.7 10 ^3/uL (0.4-5.4); Lymphocytes % (auto) 21.8 % (10.0-50.0); Mean Corpuscular Hemoglobin 26.3 pg (28.0-32.0); Mean Corpuscular Volume 79.3 fL (80.0-100.0); Monocytes % (auto) 5.9 % (0.0-12.0); Neutrophils % (auto) 67.7 % (37.0-80.0); Platelet Count (auto) 259 10^3/uL (140-450); Red Blood Cells 4.82 10^6/uL (4.0-5.20); Red Cell Distribution Width 14.9 % (11.8-14.3); White Blood Cell 7.9 10^3/uL (4.4-10.8)
[2024-12-02 06:16] LABS: Alanine Aminotransferase 18 U/L (7-40); Alkaline Phosphatase 104 U/L (46-116); Anion Gap 9 (5-15); Aspartate Aminotransferase 19 U/L (<34); BUN/Creatinine Ratio 14.9 (10.0-20.0); Bilirubin, Total 0.4 mg/dL (0.2-1.0); Blood Urea Nitrogen 11 mg/dL (9-23); Calcium 9.1 mg/dL (8.7-10.4); Carbon Dioxide 26 mmol/L (20-31); Chloride 104 mmol/L (98-107); Glucose 99 mg/dL (74-106); Sodium 139 mmol/L (136-145); Total Protein 6.4 g/dL (5.7-8.2)
--- NOTE | 2024-12-02 16:53 | DVHPN2 ---
Subjective Patient was seen and examined by me at bedside. She is still complaining of left flank pain. Changes from previous H/P or p: No Changes Objective Vitals Vital Signs Date Time Temp Pulse Resp B/P (MAP) Pulse Ox O2 Delivery O2 Flow Rate FiO2 12/02/24 15:10 85 16 110/64 12/02/24 13:00 100.0 99 100.0 12/02/24 08:06 Room Air* 0 21 Intake/Output Intake and Output 12/02/24 07:00 Intake Total 975 ml Balance 975 ml Intake Oral 925 ml IV Total 50 ml # Voids 4 Exam HEENT pupils are reactive Neck is supple CVS S1-S2 regular rate and rhythm Respiratory by L clear GI possible some soft nondistended r, there is left CVA tenderness Extremities no pedal edema [employer] no motor deficit Medications Current Medications Medications Dose Ordered Sig/Kami Route Start Time Stop Time Status Last Admin Dose Admin Cefepime HCl 50 ml @ 12.5 mls/hr BID IV 11/30/24 22:00 12/02/24 10:09 12.5 MLS/HR Sodium Chloride 10 ml Q8HR IV 11/30/24 22:00 12/02/24 13:33 10 ML Docusate Sodium 100 mg BIDPRN PRN PO 11/30/24 15:30 Acetaminophen 650 mg Q6HP PRN PO 11/30/24 15:30 Acetaminophen/ Hydrocodone Bitart 1 tab Q4HP PRN PO 11/30/24 15:30 12/01/24 01:30 1 TAB Ondansetron HCl 4 mg Q4HP PRN IV 11/30/24 15:30 12/02/24 10:57 4 MG Morphine Sulfate 2 mg Q4HPRN PRN IV 11/30/24 15:30 12/02/24 15:10 2 MG Enoxaparin Sodium 40 mg DAILY SC 12/01/24 10:00 12/02/24 10:09 40 MG Albuterol 108 mcg TID PRN IN 11/30/24 15:45 Cancel Meclizine HCl 25 mg BIDP PRN PO 11/30/24 15:45 Laboratory Results Laboratory Tests 12/02/24 05:17 Chemistry Test 12/02/24 05:17 Albumin 4.0 g/dL (3.2-4.8) Calcium Level 9.1 mg/dL (8.7-10.4) Total Protein 6.4 g/dL (5.7-8.2) LFT Test 12/02/24 05:17 Alanine Aminotransferase (ALT) 18 U/L (7-40) Alkaline Phosphatase 104 U/L (46-116) Aspartate Amino Transferase (AST) 19 U/L (<34) Total Bilirubin 0.4 mg/dL (0.2-1.0) Urinalysis Test 11/30/24 09:51 Urine Color Yellow (Yellow) Urine Clarity Turbid (Clear) H Urine pH 7.5 (5.0-9.0) Urine Specific [place] 1.022 (1.001-1.035) Urine Protein Trace (Negative) H Urine Ketones Negative (Negative) Urine Blood Negative /uL (Negative) Urine Nitrite 2+ (Negative) H Urine Bilirubin Negative (Negative) Urine Urobilinogen Normal mg/dL (Negative) Urine Leukocyte Esterase 2+ /uL (Negative) Urine RBC 5 /hpf (0 - 4) Urine Microscopic WBC 17 /HPF (0-5) H Urine Squamous Epithelial Cells Many /hpf (<5) Urine Bacteria Many /hpf (None Seen) H Urine Mucus Few (None Seen) Urine Glucose Normal mg/dL (Normal) Microbiology Microbiology Date/Time Source Procedure Growth Status 11/30/24 13:06 Blood Blood Culture - Preliminary NO GROWTH AFTER 48 HOURS OF INCUBATION. Resulted 11/30/24 09:51 Voided Urine Urine Culture - Final Escherichia coli Complete Assessment/Plan Assessment/Plan 53-year-old female with a known history of lumbar spine surgery in the past presented to the hospital left flank pain found to have 1. Acute pyelonephritis 2. Acute cystitis with microscopic hematuria 3. Solitary kidney 4. Leukocytosis 5. Recent history of lumbar sacral spine surgery. Outpatient follow up at [facility] with the spine surgery. -IV antibiotics, follow up urine culture, discontinue vancomycin IV. -pain meds as needed. Plan discussed with: Patient, Other My Orders Orders - AYDEN BRUCE MD Procedure Category Date Status Time Communication Order ORDERS 12/01/24 Transmitted 17:02 Cleanse Wound With CELESTE 12/02/24 In Process Wound Clean 10:36 Date of Service: Dec 02, 2024 Billing Provider: AYDEN BRUCE MD Common Visit Codes: [id number] INP/OBS CARE(MOD) AYDEN BRUCE MD Dec 02, 2024 16:53
[2024-12-03] VITALS (7 sets, daily range): BP systolic 102–129; BP diastolic 58–84; PULSE 76–96; RESP 17–19; TEMP 36.3; O2SAT 17–99
[2024-12-03 06:29] LABS: Mean Corpuscular Hemoglobin 26.4 pg (28.0-32.0); Monocytes # (auto) 0.6 10 ^3/uL (0-1.3); Platelet Count (auto) 245 10^3/uL (140-450)
[2024-12-03 06:36] LABS: Basophils # (auto) 0 10 ^3/uL (0-0.2); Basophils % (auto) 0.3 % (0.0-2.0); Eosinophils # (auto) 0.3 10 ^3/uL (0-0.8); Eosinophils % (auto) 2.4 % (0.0-7.0); Hemoglobin 12.6 g/dL (12.2-16.2); Lymphocytes # (auto) 2.3 10 ^3/uL (0.4-5.4); Lymphocytes % (auto) 20.7 % (10.0-50.0); Mean Corpuscular Hgb Conc. 33.2 g/dL (32.0-36.0); Mean Corpuscular Volume 79.5 fL (80.0-100.0); Monocytes % (auto) 5.4 % (0.0-12.0); Neutrophils # (auto) 7.8 10 ^3/uL (1.6-8.6); Neutrophils % (auto) 71.2 % (37.0-80.0); Red Blood Cells 4.78 10^6/uL (4.0-5.20)
[2024-12-03 06:49] LABS: Alanine Aminotransferase 18 U/L (7-40); Albumin 4.1 g/dL (3.2-4.8); Alkaline Phosphatase 102 U/L (46-116); Anion Gap 10 (5-15); Aspartate Aminotransferase 14 U/L (<34); BUN/Creatinine Ratio 14.1 (10.0-20.0); Blood Urea Nitrogen 10 mg/dL (9-23); Calcium 9.9 mg/dL (8.7-10.4); Carbon Dioxide 25 mmol/L (20-31); Chloride 105 mmol/L (98-107); Glucose 96 mg/dL (74-106); Potassium 3.9 mmol/L (3.5-5.1); Sodium 140 mmol/L (136-145); Total Protein 6.8 g/dL (5.7-8.2)
[2024-12-03 06:50] LABS: Bilirubin, Total 0.4 mg/dL (0.2-1.0)
[2024-12-03] MEDS ORDERED: CEPH500C PO ×2 (16:36→16:37)
--- NOTE | 2024-12-03 16:38 | DVHDS2 ---
Discharge Summary Date of Admission Nov 30, 2024 at 15:17 Date of Discharge: Dec 03, 2024 Labs/Diagnostic Data: Laboratory Results Test 12/03/24 05:51 12/01/24 03:18 11/30/24 13:06 11/30/24 09:51 White Blood Count 11.0 10^3/uL (4.4-10.8) Red Blood Count 4.78 10^6/uL (4.0-5.20) Hemoglobin 12.6 g/dL (12.2-16.2) Hematocrit 38.0 % (36.0-46.0) Mean Corpuscular Volume 79.5 fL (80.0-100.0) Mean Corpuscular Hemoglobin 26.4 pg (28.0-32.0) Mean Corpuscular Hemoglobin Concent 33.2 g/dL (32.0-36.0) Red Cell Distribution Width 15.0 % (11.8-14.3) Platelet Count 245 10^3/uL (140-450) Mean Platelet Volume 9.2 fL (6.9-10.8) Neutrophils (%) (Auto) 71.2 % (37.0-80.0) Lymphocytes (%) (Auto) 20.7 % (10.0-50.0) Monocytes (%) (Auto) 5.4 % (0.0-12.0) Eosinophils (%) (Auto) 2.4 % (0.0-7.0) Basophils (%) (Auto) 0.3 % (0.0-2.0) Neutrophils # (Auto) 7.8 10 ^3/uL (1.6-8.6) Lymphocytes # (Auto) 2.3 10 ^3/uL (0.4-5.4) Monocytes # (Auto) 0.6 10 ^3/uL (0-1.3) Eosinophils # (Auto) 0.3 10 ^3/uL (0-0.8) Basophils # (Auto) 0 10 ^3/uL (0-0.2) Nucleated Red Blood Cells 0.0 % Sodium Level 140 mmol/L (136-145) Potassium Level 3.9 mmol/L (3.5-5.1) Chloride Level 105 mmol/L (98-107) Carbon Dioxide Level 25 mmol/L (20-31) Anion Gap 10 (5-15) Blood Urea Nitrogen 10 mg/dL (9-23) Creatinine 0.71 mg/dL (0.550-1.02) Glomerular Filtration Rate Calc 102 mL/min (>90) BUN/Creatinine Ratio 14.1 (10.0-20.0) Serum Glucose 96 mg/dL (74-106) Calcium Level 9.9 mg/dL (8.7-10.4) Total Bilirubin 0.4 mg/dL (0.2-1.0) Aspartate Amino Transferase (AST) 14 U/L (<34) Alanine Aminotransferase (ALT) 18 U/L (7-40) Alkaline Phosphatase 102 U/L (46-116) Total Protein 6.8 g/dL (5.7-8.2) Albumin 4.1 g/dL (3.2-4.8) Random Vancomycin Level 5.2 ug/mL (5-10) Lactic Acid Level 1.2 mmol/L (0.4-2.0) Urine Color Yellow (Yellow) Urine Clarity Turbid (Clear) Urine pH 7.5 (5.0-9.0) Urine Specific [place] 1.022 (1.001-1.035) Urine Protein Trace (Negative) Urine Ketones Negative (Negative) Urine Blood Negative /uL (Negative) Urine Nitrite 2+ (Negative) Urine Bilirubin Negative (Negative) Urine Urobilinogen Normal mg/dL (Negative) Urine Leukocyte Esterase 2+ /uL (Negative) Urine RBC 5 /hpf (0 - 4) Urine Microscopic WBC 17 /HPF (0-5) Urine Squamous Epithelial Cells Many /hpf (<5) Urine Bacteria Many /hpf (None Seen) Urine Mucus Few (None Seen) Urine Glucose Normal mg/dL (Normal) Other Laboratory Tests 12/03/24 05:51 Brief Hx & Hospital Course: 53-year-old female with a known history of lumbar spine surgery in the past presented to the hospital left flank pain found to have acute pyelonephritis as well as acute cystitis with microscopic hematuria. Patient does have known history of solitary kidney only. Patient was started on IV antibiotics which was switched to p.o. antibiotics upon discharge. Patient is currently stable to be discharged as she is pain-free. Patient already has [place] at home for her recent spine surgery, no driving, no signing legal documents, no playing on heavy machinery while on narcotics. Condition at Discharge: Stable Final Diagnosis/Problems List 53-year-old female with a known history of lumbar spine surgery in the past presented to the hospital left flank pain found to have 1. Acute pyelonephritis 2. Acute cystitis with microscopic hematuria 3. Solitary kidney 4. Leukocytosis Discharge Disposition: Home SNF Discharge Will this Physician continue t: No Discharge Instruct/Medications Diet: Cardiac 2g Na,low cholest Activity: See Comment Activity comment: No driving, no signing of legal documents, no planning on heavy machinery while on narcotics. Follow Up/Referral: Follow up with the PCP in 1-2 weeks Medications: Keflex as prescribed. Discharge Statement: "Patient was advised to return to the ER or call 911 if any headaches, dizziness, shortness of breath, chest pain, abdominal pain, bleeding, fevers, or worsening of medical condition. Patient was counseled about treatment plan, medications, possible side effects, patientverbalized understanding. All questions were answered to the best of my ability. This discharge took greater then 30 minutes in planning, reviewing documentation, counseling the patient, and discussing with other team members." ASSESSMENT ASSESSMENT Assessment 53-year-old female with a known history of lumbar spine surgery in the past presented to the hospital left flank pain found to have 1. Acute pyelonephritis 2. Acute cystitis with microscopic hematuria 3. Solitary kidney 4. Leukocytosis Date of Service: Dec 03, 2024 Billing Provider: AYDEN BRUCE MD Common Visit Codes: [id number] DISCH DAY >30min AYDEN BRUCE MD Dec 03, 2024 16:38
[2024-12-03] MEDS: CEPHALEXIN 250 MG CAP PO ONE (18:00)
== END 2024-12-03 18:30 | disposition home or self-care (01) | DRG 463 ==
LOC: ER 09:34 → OVERFLOW 15:17 → EAST 12-01 18:16
PROVIDERS: ADMIT Internal Medicine; ATTEND Internal Medicine
DX: N10 Acute pyelonephritis (principal); Q60.0 Renal agenesis, unilateral; R65.10 Systemic inflammatory response syndrome (SIRS) of non-infectious origin without acute organ dysfunction; I10 Essential (primary) hypertension; Z86.73 Personal history of transient ischemic attack (TIA), and cerebral infarction without residual deficits; Z90.49 Acquired absence of other specified parts of digestive tract; Z83.3 Family history of diabetes mellitus; Z82.49 Family history of ischemic heart disease and other diseases of the circulatory system; Z80.49 Family history of malignant neoplasm of other genital organs; Z80.3 Family history of malignant neoplasm of breast; Z82.3 Family history of stroke; Z79.2 Long term (current) use of antibiotics; Z79.899 Other long term (current) drug therapy
CPT/HCPCS: 36415; 74176; 80048; 80053; 80202; 81001; 83605; 85025; 87040; 87086; 87088; 87186; 96365; 96375; G0378; J0692; J2405; J3490

== ENCOUNTER 2025-05-06 13:58 | Emergency (ER) | payer MEDICAID ==
[~2025-05-06 13:58] MED LIST changes: -AZIT1POW PO; +CEPH500C PO; +DULO60CA41 PO; +LEVO50TA7 PO; -LEVO750T40 PO; -METH4PAK PO; +SENN-58 PO
== END 2025-05-06 13:59 | disposition left against medical advice (07) ==
LOC: ER 13:58
DX: M79.672 Pain in left foot (principal); Z53.21 Procedure and treatment not carried out due to patient leaving prior to being seen by health care provider